=== PATIENT | female | born 1995 | race Caucasian/White ===

== ENCOUNTER 2017-10-08 11:00 | Inpatient (IN) | payer OTHER ==
[2017-10-08 12:24] LABS: HEMATOCRIT 34.6 % (36.0-47.0); HEMOGLOBIN 11.8 g/dl (12.0-16.0); MEAN CORPUSCULAR HGB CONC 34.1 g/dl (32.0-36.5); PLATELET COUNT, AUTOMATED 205 10^3/uL (150-450); RED BLOOD COUNT 4.22 10^6/uL (4.00-5.40); WHITE BLOOD COUNT 10.9 10^3/uL (4.0-10.0)
[2017-10-08] MEDS: OXYTOCIN DRIP 30 UNITS in APPROPRIATE DILUENT 1 EA IV (14:13)
[2017-10-08] MEDS ORDERED: FENTANYL 2MCG/ML ROPIVACAINE 0.2% IN 0.9% NACL 200ML IVBAG As Ordered (16:06)
[2017-10-08] MEDS: LR 1,000 ML IV ×2 (17:12→18:57)
[2017-10-08] MEDS ORDERED: FENTANYL/ROPIVACAINE/NACL BAG 200 ML EPIDURAL (17:30)
[2017-10-08] MEDS ORDERED: NALOXONE INJ 0.4 MG/1 ML VIAL (J2310) IV (17:30)
[2017-10-08] MEDS ORDERED: LACTATED RINGER'S 1000 ML IV (17:30)
[2017-10-08] MEDS ORDERED: EPIDURAL/PCA KEYS XX (17:30)
[2017-10-08] MEDS ORDERED: ePHEDrine SULFATE 25 MG/5 ML(5MG/ML) SYRINGE IV (17:30)
[2017-10-08] MEDS ORDERED: REFRIGERATOR IV KEYS XX (17:30)
[2017-10-08] MEDS ORDERED: ONDANSETRON 4MG/2ML VIAL (J2405) IV (17:30)
[2017-10-08] MEDS ORDERED: EPIDURAL COMMENT XX (17:30)
[2017-10-08] MEDS ORDERED: diphenhydrAMINE INJ 50MG/ML VIAL (J1200) IV (17:30)
[2017-10-09] MEDS ORDERED: RHOGAM 300 MCG (1500 IU) INJ (J2790) IM (00:15)
[2017-10-09] MEDS ORDERED: MEASLES,MUMPS,RUBELLA VACCINE INJ (MMR-II) (90707) SC (00:15)
[2017-10-09] MEDS ORDERED: IBUPROFEN 800 MG TAB PO (00:15)
[2017-10-09] MEDS ORDERED: ACETAMINOPHEN TAB 650MG DOSE (2X325MG) PO (00:15)
[2017-10-09] MEDS ORDERED: OXYTOCIN DRIP 30 UNITS in APPROPRIATE DILUENT 1 EA IV (00:15)
[2017-10-09] MEDS ORDERED: DIBUCAINE 1% OINTMENT 30GM TOP (00:15)
[2017-10-09] MEDS: PRENATAL VITAMINS CHEWABLE TABLET PO (09:10)
[2017-10-09] MEDS: DOCUSATE SODIUM 100 MG CAP PO ×2 (09:10→20:58)
[2017-10-10] MEDS: PRENATAL VITAMINS CHEWABLE TABLET PO (09:49)
[2017-10-10] MEDS: DOCUSATE SODIUM 100 MG CAP PO (09:49)
== END 2017-10-10 14:39 | disposition home or self-care (01) | DRG 775 ==
LOC: M LDI 11:00 → M OBS 10-09 02:35
PROVIDERS: Obstetrics & Gynecology
PROC: 10E0XZZ Delivery of Products of Conception, External Approach (ICD-10-PCS; principal; 2017-10-08)
PROC: 0HQ9XZZ Repair Perineum Skin, External Approach (ICD-10-PCS; 2017-10-08)
PROC: 3E033VJ Introduction of Other Hormone into Peripheral Vein, Percutaneous Approach (ICD-10-PCS; 2017-10-08)
DX: O48.0 Post-term pregnancy (principal); Z3A.41 41 weeks gestation of pregnancy; O70.0 First degree perineal laceration during delivery; O69.1XX0 Labor and delivery complicated by cord around neck, with compression, not applicable or unspecified; Z37.0 Single live birth